=== PATIENT | male | born 1935 | race Caucasian/White ===

== ENCOUNTER 2020-08-14 17:32 | Inpatient (IN) | payer OTHER, SELFPAY ==
[~2020-08-14] VITALS: Ht 157.5 cm; Wt 60.1 kg
[~2020-08-14 17:32] MED LIST: METO-442 PO; SIMV20TA2 PO
--- NOTE | 2020-08-14 17:32 | NUR ---
Placed in room 8 . Placed on customer operations associate, blood pressure machine and pulse oximeter. To gown for exam. Side rails up. Report given to DEYANIRA Medrano.
--- NOTE | 2020-08-14 17:35 | NUR ---
ER Dr. Peña at bedside examining patient.
--- NOTE | 2020-08-14 17:35 | NUR ---
Patient presented to ER C/O, CVA symptoms. Patient A&Ox4, ambulatory to ER, afebrile, denies pain, denies N/V/D, left facial droop. Family of patient report facial droop since 1200 today.
--- NOTE | 2020-08-14 17:40 | NUR ---
# 20 gauge angiocath placed to LAC and RAC. Use of asceptic technique. Opsite placed over site. Blood return noted. Blood for lab drawn from site. Flushed with 10 cc of normal saline. No evidence of infiltration noted. Patient tolerated well.
[2020-08-14 17:49] VITALS: BP_SYST 143
--- NOTE | 2020-08-14 17:50 | NUR ---
Pt to CT via [facility] for CT with contrast. Per Dr. Peña, ok to proceed prior to receiving lab results. Radiology aware.
[2020-08-14 17:54] LABS: BASOPHILS # (AUTO) 0.2 K/uL (0.0-0.2); BASOPHILS % (AUTO) 2.6 % (0.0-2.0); EOSINOPHILS # (AUTO) 0.2 K/uL (0.0-0.4); EOSINOPHILS % (AUTO) 2.7 % (0.0-4.0); HEMATOCRIT 38.1 % (36-54); LYMPHOCYTES # (AUTO) 1.4 K/uL (1.0-5.5); LYMPHOCYTES % (AUTO) 16.3 % (20.5-51.5); MEAN CORPUSCULAR HEMOGLOBIN 31 pg (27-31); MEAN CORPUSCULAR HGB CONC 34 % (32-36); MEAN CORPUSCULAR VOLUME 91 fL (79.0-98.0); MONOCYTES # (AUTO) 0.6 K/uL (0.0-1.0); MONOCYTES % (AUTO) 6.5 % (1.7-9.3); NEUTROPHILS # (AUTO) 6.3 K/uL (1.8-7.7); NEUTROPHILS % (AUTO) 71.9 % (40.0-70.0); PLATELET COUNT (AUTO) 263 K/uL (130-430); RED CELL DISTRIBUTION WIDTH 13.7 % (9.0-15.0); WHITE BLOOD COUNT (AUTO) 8.7 K/uL (4.8-10.8)
[2020-08-14] MEDS ORDERED: IOHEXOL 350 mgI/mL, 150 ML INFUS..BTL IV ONE (18:14)
[2020-08-14 18:16] LABS: ANION GAP 7 (5-15); CALCIUM 8.6 mg/dL (8.4-11.0); CHLORIDE 102 mmol/L (98-107); GLUCOSE 102 mg/dL (70-99); POTASSIUM 4.1 mmol/L (3.5-5.1); SODIUM SERUM 133 mmol/L (136-145); UREA NITROGEN, BLOOD 13 mg/dL (8-21)
--- NOTE | 2020-08-14 18:16 | NUR ---
PT to ER Bed 8 from Radiology.
[2020-08-14 18:25] LABS: PROTHROMBIN TIME 10.5 SECS (9.5-12.5)
[2020-08-14] MEDS ORDERED: ASPIRIN 325 MG TABLET PO ONE (18:30)
[2020-08-14 19:07] LABS: BILIRUBIN,URINE NEGATIVE (NEGATIVE); BLOOD, URINE NEGATIVE (NEGATIVE); CLARITY/URINE CLEAR (CLEAR); GLUCOSE,URINE NEGATIVE (NEGATIVE); KETONES,URINE NEGATIVE (NEGATIVE); LEUKOCYTE ESTERASE ,URINE NEGATIVE (NEGATIVE); NITRITE, URINE NEGATIVE (NEGATIVE); PH,URINE 7.5 (5.0-8.0); PROTEIN URINE NEGATIVE (NEGATIVE); UROBILINOGEN,URINE 0.2 (0.2-1.0)
[2020-08-14 19:11] LABS: COLOR,URINE STRAW (YELLOW)
--- NOTE | 2020-08-14 19:15 | NUR ---
Report given to Shelly MCMILLAN
--- NOTE | 2020-08-14 19:25 | NUR ---
Report received from Marcela MCMILLAN for continuation of care.
--- NOTE | 2020-08-14 19:30 | NUR ---
Patient will be admitted to care of Dr Salazar. Admitted to tele unit. Will go to room 111. Belongings list completed. Complete and up to date summary report printed. SBAR report to be given at bedside with opportunity for questions.
--- NOTE | 2020-08-14 20:37 | NUR ---
ADMISSION: The patient, CEE JOSEPH, 85 y/o, M admitted by CAPO MAYFIELD MD, with the diagnosis of CVA symptoms to room 111 B.Primary RN is aware .
--- NOTE | 2020-08-14 20:45 | NUR ---
INITIAL NOTES Patient ambulates with steady gait, no respiratory distress noted. IV site patent, dressings c/d/i. Call light within reach, bed alarm refused after patient verbalizes proper usage of call light, bed at lowest position. Will continue to monitor.
[2020-08-14 20:51] VITALS: BP_SYST 140
[2020-08-14 22:00] VITALS: BP_SYST 140
[2020-08-14] MEDS ORDERED: NALOXONE HCL 0.4 MG/ML AMP (NARCAN) IVP PRN (22:30)
[2020-08-14] MEDS ORDERED: ACETAMINOPHEN 325 MG TABLET PO PRN (22:30)
[2020-08-14] MEDS: ASPIRIN 325 MG TABLET (ECOTRIN) PO SCH (22:30)
[2020-08-14] MEDS ORDERED: HYDROcodone/ACETAMIN 5-325 MG TAB (NORCO/ VICODIN) PO PRN (22:30)
[2020-08-14] MEDS ORDERED: ALBUTEROL SULFATE 0.083% 2.5 MG/3 ML VIAL.NEB INH PRN (22:30)
[2020-08-14] MEDS: NACL 0.9% 1,000 ML IV SCH (23:12)
--- NOTE | 2020-08-14 23:14 | NUR ---
CONSULTATION PAGED/CALLED Reason for Consultation: CVA Person Who was Notified: DR. CABEZAS Consulting Physician: DR. CABEZAS Migration Specialist Specialty: Ordering Physician: LEONEL
--- NOTE | 2020-08-15 01:15 | NUR ---
Patient resting, eyes closed, no signs of acute respiratory distress noted. Will continue to monitor.
--- NOTE | 2020-08-15 04:05 | NUR ---
Patient resting, answering to the MRI questionnaires. No distress at this time. Will continue to monitor.
--- NOTE | 2020-08-15 05:55 | NUR ---
SPEECH CONSULTATION PAGED/CALLED Reason for Consultation:SWALLOW EVAL Person Who was Notified: JABIER [employer]IL Consulting Physician: [employer] Set Up Technician Specialty: Ordering Physician: LEONEL
--- NOTE | 2020-08-15 06:37 | NUR ---
CLOSING NOTES Patient is resting, no signs of distress at this time. IV site patent, dressings c/d/i, IVF running. Call light within reach, bed alarm off per patient request after patient demonstrates proper call light usage, bed at lowest position. All needs met throughout shift, patient to have MRI brain w/o contrast and 2D echo today. Will endorse care to oncoming shift.
[2020-08-15 07:49] LABS: BASOPHILS % (AUTO) 0.6 % (0.0-2.0); EOSINOPHILS # (AUTO) 0.3 K/uL (0.0-0.4); EOSINOPHILS % (AUTO) 5.2 % (0.0-4.0); HEMATOCRIT 37.8 % (36-54); HEMOGLOBIN 12.9 g/dL (14.0-18.0); LYMPHOCYTES # (AUTO) 1.2 K/uL (1.0-5.5); LYMPHOCYTES % (AUTO) 18.5 % (20.5-51.5); MEAN CORPUSCULAR HEMOGLOBIN 31 pg (27-31); MEAN CORPUSCULAR HGB CONC 34 % (32-36); MEAN CORPUSCULAR VOLUME 91 fL (79.0-98.0); MONOCYTES # (AUTO) 0.6 K/uL (0.0-1.0); MONOCYTES % (AUTO) 9.1 % (1.7-9.3); NEUTROPHILS # (AUTO) 4.5 K/uL (1.8-7.7); NEUTROPHILS % (AUTO) 66.6 % (40.0-70.0); PLATELET COUNT (AUTO) 260 K/uL (130-430); RED BLOOD CELL COUNT(AUTO) 4.16 MIL/uL (4.2-6.2); RED CELL DISTRIBUTION WIDTH 13.4 % (9.0-15.0); WHITE BLOOD COUNT (AUTO) 6.7 K/uL (4.8-10.8)
[2020-08-15 08:00] VITALS: BP_SYST 155
--- NOTE | 2020-08-15 08:00 | NUR ---
Note Pt resting in bed with tele unit attached and intact at this time. No SOB/resp distress or chest pain/discomfort was noted at this time. IV in right AC intact and patent infusing IVF's well. Pt is NPO at this time. No needs noted at this time. Call light within reach.
[2020-08-15 08:12] LABS: ALANINE AMINOTRANSFERASE 21 U/L (12-78); ALBUMIN 2.7 g/dL (3.4-4.8); ANION GAP 7 (5-15); ASPARTATE AMINOTRANSFERASE 18 U/L (10-37); CALCIUM 8.3 mg/dL (8.4-11.0); CHLORIDE 98 mmol/L (98-107); CHOLESTEROL 185 mg/dL (<200); CREATININE 0.59 mg/dL (0.55-1.30); GLUCOSE 98 mg/dL (70-99); HDL CHOLESTEROL 47 mg/dL (>45); LDL CHOLESTEROL 121 mg/dL (<100); POTASSIUM 3.4 mmol/L (3.5-5.1); SODIUM SERUM 130 mmol/L (136-145); TOTAL BILIRUBIN 0.4 mg/dL (0.0-1.0); TRIGLYCERIDES 110 mg/dL (30-150); UREA NITROGEN, BLOOD 8 mg/dL (8-21)
[2020-08-15] MEDS: ASPIRIN 325 MG TABLET (ECOTRIN) PO SCH (08:22)
--- NOTE | 2020-08-15 09:43 | NUR ---
Nutrition Update Villa Scale 16 noted. Pt admitted for CVA symptoms. Diet: NPO BMI: 24.2 kg/m2 RD to follow per nutrition care standards.
--- NOTE | 2020-08-15 12:00 | NUR ---
Note Pt went down for MRI of head w/o contrast via wheelchair at 10am. IVF's were saline locked. Pt came back to room 1030am, IVF's were reconnected and tele unit was reapplied. No needs noted at this time. Dr Salazar was on the floor and results of MRI of head was given to MD to review (11am). No needs noted at this time. Call light within reach. Pt checked on q1' and PRN all shift for needs and care. Pt uses urinal to void.
[2020-08-15 12:17] VITALS: BP_SYST 151
[2020-08-15] MEDS: NACL 0.9% 1,000 ML IV SCH (13:30)
--- NOTE | 2020-08-15 15:52 | NUR ---
S.T. SWALLOW EVAL, SPEECH LANGUAGE EVAL, AND SPEECH TX. SWALLOW EVAL AND SPEECH LANGUAGE EVAL COMPLETED. SWALLOW: PT PRESENTS W/ GENERALLY FUNCTIONAL OROPHARYNGEAL SWALLOW W/ TIMELY BOLUS MANIPULATION AND TIMELY SWALLOW. NO S/S OF ASPIRATION. 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 REC: 1) MECH SOFT CHOPPED DIET. THIN LIQUIDS OK. WRITTEN GUIDELINES GIVEN TO PT. 2) SPEECH TX FOR DYSARTHRIA ORDERED. NURSE STONEY NOTIFIED. SPEECH TX: S: PT SEEN FOR SPEECH TX (15 MIN) O: IMPROVE SPEECH INTELLIGIBILITY A: PT INSTRUCTED ON OM FACILITATION TASKS. PT INSTRUCTED ON SPEECH COMPENSATORY STRATEGIES. PT DEMONSTRATED UNDERSTANDING. WRITTEN INSTRUCTIONS GIVEN. P: CONT TX PLANNED.
--- NOTE | 2020-08-15 15:55 | NUR ---
Note Anayeli (Speech therapist) on the floor and assessment for swallow eval was completed at this time. Pt to be able to tolerate Mechanical soft/chopped diet for dinner. IVF's infusing well. No needs noted a this time. Call light within reach.
[2020-08-15 16:00] VITALS: BP_SYST 154
--- NOTE | 2020-08-15 18:10 | NUR ---
NOTE Pt sitting up in bed eating his Mechanical soft/chopped dinner. No SOB/resp distress or pain/discomfort noted at this time. Tele unit attached and intact all shift. IV in RAC intact and patent infusing IVF's well. Pt checked on q1' and PRN all shift for needs and care. Pt maintained with safety precautions all shift. No needs noted at this time. Call light within reach.
--- NOTE | 2020-08-15 19:20 | NUR ---
RECEIVED REPORT FROM DAVID LUA RN. PT IS AAOX4, PLEASANT AND CALM. IVF INFUSING VIA PUMP -PERIPHERAL IV. AT PRESENT PT VOICES NO C/O PAIN OR DISCOMFORT. NAD NOTED.
[2020-08-15 20:00] VITALS: BP_SYST 144
[2020-08-15] MEDS ORDERED: SIMVASTATIN 20 MG TABLET PO SCH (21:00)
--- NOTE | 2020-08-15 22:30 | NUR ---
MED PASS DONE PT TOLERATED WELL, CALM AND COOPERATIVE. NAD NOTED. SR ON MONITOR WILL CONT TO MONITOR.
[2020-08-15] MEDS ORDERED: ZOLPIDEM TARTRATE 5 MG TABLET PO ONE (23:00)
--- NOTE | 2020-08-15 23:30 | NUR ---
PT REQUESTED A SLEEPING PILL, DR PENA CALLED, NEW ORDERS GIVEN FOR AMBIEN PO X1 DOSE. MED GIVEN.
[2020-08-16 00:10] VITALS: BP_SYST 140
--- NOTE | 2020-08-16 01:30 | NUR ---
ON ROUNDS PT ASLEEP, AMBIEN EFFECTIVE. NAD NOTED RESP REG NON-LABORED, SR ON MONITOR.
[2020-08-16] MEDS: NACL 0.9% 1,000 ML IV SCH ×2 (03:47→14:16)
--- NOTE | 2020-08-16 04:00 | NUR ---
AM CARE DONE, BED BATH AND COMPLETE LINEN CHANGE DONE. PT SELF REPOSITIONED W/ ASSIST, AND MADE COMFORTABLE. PT TOLERATED WELL, NAD NOTED. WAS VERY THANKFUL, RETURNED TO SLEEP.
--- NOTE | 2020-08-16 07:02 | NUR ---
CLOSING NOTE: ON ROUNDS PT ASLEEP, NAD NOTED. ON MONITOR SR /HR 65. WILL CONTINUE TO MONITOR UNTIL ENDORSED TO AM RN
[2020-08-16 08:00] VITALS: BP_SYST 155
--- NOTE | 2020-08-16 08:00 | NUR ---
Note Pt sitting up in bed eating his breakfast. No SOB/resp distress or severe chest pain/discomfort noted at this time. Tele unit attached and intact. IV in left AC intact and patent infusing IVF's well. No needs noted at this time. Call light within reach.
[2020-08-16] MEDS: ASPIRIN 325 MG TABLET (ECOTRIN) PO SCH (09:09)
[2020-08-16 12:00] VITALS: BP_SYST 150
--- NOTE | 2020-08-16 12:00 | NUR ---
Note Pt was seen by Dr Sandoval and order to discharge home if okay with Dr Garland. Dr Garland was called and verbal discharge order home was given. Pt stable and denies any needs at this time. Pt's daughter Sandra called and update on pt's status given. Dr Sandoval also spoke to pt's daughter Sandra and questions/concerns were answered at this time. Call light within reach.
--- NOTE | 2020-08-16 14:00 | NUR ---
Note Pt sitting up in BS chair and IVF's were saline locked at this time. Pt aware his daughter will pick him up at 1600 to take him home.
[2020-08-16 14:52] VITALS: BP_SYST 138
--- NOTE | 2020-08-16 15:35 | NUR ---
Note Pt's tele unit was dc'd and returned to teletypesetter monitor. IV in left AC was dc'd and site benign. No swelling/bleeding/drainage noted at this time. Pt denies any SOB/resp distress or chest pain/discomfort at this time. Pt was checked on q1' and PRN all shift for needs and care. Pt was maintained with safety precautions all shift. No needs noted. Pt's daughter called and request for pants per pt's request was made. Pt stable and no needs noted at this time. Call light within reach.
--- NOTE | 2020-08-16 16:01 | NUR ---
P.T. NOTES D/C FROM P.T. AFTER TX, ENDORSED TO NURSING, MAY AMBU W/ SPC AD GARCIA W/ NURSE SUPERVISION; REFER TO D/C SUMMARY.
--- NOTE | 2020-08-16 16:05 | NUR ---
Note Pt dressed in street clothes and all belongings packed. Pt checked side table and drawers for belongings. Pt stable. Pt was given discharge instructions/prescription and questions/concerns were answered at this time. Pt off the floor via wheelchair to private car. Explained discharge instructions and prescription to pt's daughter Sandra and pt's . Questions/concerns were answered. No SOB/resp distress or chest pain/discomfort was noted. Pt was checked on q1' and PRN all shift. No needs were noted. Pt was maintained with safety precautions all shift.
[2020-08-16] MEDS ORDERED: ZOLPIDEM TARTRATE 5 MG TABLET PO ONE (21:00)
--- NOTE | 2020-08-27 09:33 | NUR ---
DISCHARGE FOLLOW UP CALL: ECONOMIC CONSULTANT phoned pt @ [phone] and spoke with spouse Jacinta. Per spouse, pt is "a little bit better", especially after the PT that PCP ordered for him. Spouse stated pt met with PCP already and has another appointment in 2 weeks. Pt was able to fill prescription meds and no questions regarding the discharge instructions. Jacinta requested for dietary to call; Darya emailed. No further SS call needed.
--- NOTE | 2020-09-02 13:56 | NUR ---
Nutrition Notes RD was notified by high school social studies teacher regarding need for F/U nutrition education. RD spoke w/ pt's via phone call to provide nutrition education. Pt's stated that pt was working w/ a therapist at time of RD phone call, and she would prefer nutrition handouts mailed to her home address: [address] [place] [address]. [address] will provide heart-healthy MNT handouts from the AND Nutrition Care Manual. RD contact info will be provided as well for any further questions.
== END 2020-08-16 16:05 | disposition home or self-care (01) | DRG 65 ==
LOC: SED 17:32 → STU 19:27
PROVIDERS: ADMIT Internal Medicine Hospice and Palliative Medicine; ATTEND Internal Medicine Hospice and Palliative Medicine
DX: I63.9 Cerebral infarction, unspecified (principal); J84.9 Interstitial pulmonary disease, unspecified; E44.0 Moderate protein-calorie malnutrition; I10 Essential (primary) hypertension; I70.0 Atherosclerosis of aorta; G31.9 Degenerative disease of nervous system, unspecified; Z20.828 Contact with and (suspected) exposure to other viral communicable diseases; D64.9 Anemia, unspecified; Z88.0 Allergy status to penicillin; Z79.899 Other long term (current) drug therapy
CPT/HCPCS: 36415; 70450-TC; 70460-TC; 70498; 70551; 71045; 80048; 80053; 80061; 81003; 82962; 84484; 85025; 85610-TC; 85730-TC; 92507-GN; 92523; 92610-GN; 93005; 93306; 97110-GP; 97116-GP; 97530-GP; 99291; G0378; J7030; Q9967

== ENCOUNTER 2024-01-24 05:05 | Emergency (ER) | payer OTHER ==
[~2024-01-24] VITALS: Ht 162.6 cm; Wt 54.4 kg
[~2024-01-24 05:05] MED LIST changes: +ALBU2.5V7 INH; +DORZ10DR10 EACH EYE; +LEVO-62 PO; -METO-442 PO; +PRED20TA PO; -SIMV20TA2 PO
[2024-01-24 05:16] VITALS: BP_SYST 110; PULSE 70; RESP 16; TEMP 97.7; O2SAT 98
[2024-01-24] MEDS ORDERED: TRAM50TA2 PO (06:54)
[2024-01-24 07:01] VITALS: BP_SYST 110; PULSE 70; RESP 16; TEMP 97.7; O2SAT 98
== END 2024-01-24 07:01 | disposition home or self-care (01) ==
LOC: SED 05:05
DX: S42.211A Unspecified displaced fracture of surgical neck of right humerus, initial encounter for closed fracture (principal); S09.90XA Unspecified injury of head, initial encounter; I10 Essential (primary) hypertension; Z88.0 Allergy status to penicillin; Z79.899 Other long term (current) drug therapy; W06.XXXA Fall from bed, initial encounter; Y93.89 Activity, other specified; Y92.89 Other specified places as the place of occurrence of the external cause; Y99.8 Other external cause status
CPT/HCPCS: 70450-TC; 72125-TC; 73030; 99284

== ENCOUNTER 2024-01-28 13:36 | Inpatient (IN) | payer OTHER ==
[~2024-01-28] VITALS: Ht 170.2 cm; Wt 41.7 kg
[~2024-01-28 13:36] MED LIST changes: +TRAM50TA2 PO
[2024-01-28 13:50] VITALS: BP_SYST 168; PULSE 78; RESP 20; TEMP 97.7; O2SAT 96
[2024-01-28 14:27] LABS: BASOPHILS % (AUTO) 0.3 % (0.0-2.0); EOSINOPHILS # (AUTO) 0.1 K/uL (0.0-0.4); EOSINOPHILS % (AUTO) 1.2 % (0.0-4.0); HEMATOCRIT 28.7 % (36-54); HEMOGLOBIN 9.8 g/dL (14.0-18.0); LYMPHOCYTES % (AUTO) 10.8 % (20.5-51.5); MEAN CORPUSCULAR HEMOGLOBIN 34 pg (27-31); MEAN CORPUSCULAR HGB CONC 34 % (32-36); MEAN CORPUSCULAR VOLUME 98 fL (79.0-98.0); MONOCYTES # (AUTO) 0.9 K/uL (0.0-1.0); MONOCYTES % (AUTO) 8.9 % (1.7-9.3); NEUTROPHILS # (AUTO) 7.5 K/uL (1.8-7.7); NEUTROPHILS % (AUTO) 78.8 % (40.0-70.0); PLATELET COUNT (AUTO) 264 K/uL (130-430); RED BLOOD CELL COUNT(AUTO) 2.92 MIL/uL (4.2-6.2); RED CELL DISTRIBUTION WIDTH 12.7 % (9.0-15.0); WHITE BLOOD COUNT (AUTO) 9.5 K/uL (4.8-10.8)
[2024-01-28 14:39] LABS: ANION GAP 5 (5-15); CALCIUM 9.2 mg/dL (8.4-11.0); CARBON DIOXIDE 30 mmol/L (23-29); CHLORIDE 99 mmol/L (98-107); CREATININE 0.78 mg/dL (0.55-1.30); GLUCOSE 109 mg/dL (74-106); POTASSIUM 4.1 mmol/L (3.5-5.1); SODIUM SERUM 134 mmol/L (136-145); UREA NITROGEN, BLOOD 25 mg/dL (8-21)
[2024-01-28] MEDS: KETOROLAC TROMETHAMINE 30 MG VIAL IVP ONE (15:00)
[2024-01-28 17:49] LABS: PROTHROMBIN TIME 10.5 SECS (9.5-12.5)
[2024-01-28] MEDS ORDERED: IBUP-1970 PO (18:26)
[2024-01-28] MEDS: D5/0.45 NS 1,000 ML IV SCH (18:43)
[2024-01-28] MEDS ORDERED: NALOXONE HCL 0.4 MG/ML AMP (NARCAN) IVP PRN (20:45)
[2024-01-28] MEDS ORDERED: ALBUTEROL SULFATE 0.083% 2.5 MG/3 ML VIAL.NEB INH PRN (20:45)
[2024-01-28] MEDS ORDERED: ONDANSETRON HCL 4 MG/2 ML VIAL IVP PRN (20:45)
[2024-01-28] MEDS ORDERED: MORPHINE 4 MG INJ. 4 MG/ML VIAL IVP PRN (20:45)
[2024-01-28] MEDS ORDERED: LORazepam 2 MG/ML VIAL IVP PRN (20:45)
[2024-01-28] MEDS: DORZOLAMIDE HCL/TIMOLOL MAL. 10 ML EYE DROPS (COSOPT) EACH EYE SCH (21:00)
[2024-01-28 22:08] VITALS: BP_SYST 154; PULSE 82; RESP 18; TEMP 97.4; O2SAT 97
[2024-01-28] MEDS ORDERED: INSULIN REGULAR, HUMAN 100 UNITS/ML, 3 ML VIAL (humuLIN R) SUBCUT PRN (22:45)
[2024-01-29 02:23] VITALS: BP_SYST 154; PULSE 82; RESP 18; O2SAT 97
[2024-01-29 04:43] VITALS: BP_SYST 154; PULSE 82; O2SAT 97
[2024-01-29 07:40] VITALS: BP_SYST 117; BP_SYST 154; PULSE 70; PULSE 85; RESP 18; TEMP 98.5; TEMP 99.5; O2SAT 96; O2SAT 99
[2024-01-29 08:21] LABS: ANION GAP 7 (5-15); CALCIUM 8.6 mg/dL (8.4-11.0); CARBON DIOXIDE 27 mmol/L (23-29); CHLORIDE 102 mmol/L (98-107); CREATININE 0.64 mg/dL (0.55-1.30); GLUCOSE 121 mg/dL (74-106); POTASSIUM 4.1 mmol/L (3.5-5.1); SODIUM SERUM 136 mmol/L (136-145); UREA NITROGEN, BLOOD 22 mg/dL (8-21)
[2024-01-29 08:32] LABS: BASOPHILS % (AUTO) 0.2 % (0.0-2.0); EOSINOPHILS % (AUTO) 0.4 % (0.0-4.0); HEMATOCRIT 26.4 % (36-54); LYMPHOCYTES % (AUTO) 8.9 % (20.5-51.5); MEAN CORPUSCULAR HEMOGLOBIN 34 pg (27-31); MEAN CORPUSCULAR HGB CONC 34 % (32-36); MEAN CORPUSCULAR VOLUME 99 fL (79.0-98.0); MONOCYTES # (AUTO) 0.9 K/uL (0.0-1.0); MONOCYTES % (AUTO) 7.5 % (1.7-9.3); NEUTROPHILS # (AUTO) 9.6 K/uL (1.8-7.7); PLATELET COUNT (AUTO) 268 K/uL (130-430); RED BLOOD CELL COUNT(AUTO) 2.68 MIL/uL (4.2-6.2); RED CELL DISTRIBUTION WIDTH 12.6 % (9.0-15.0); WHITE BLOOD COUNT (AUTO) 11.5 K/uL (4.8-10.8)
[2024-01-29 11:36] VITALS: BP_SYST 161; PULSE 80; RESP 16; TEMP 98; O2SAT 98
[2024-01-29 16:50] VITALS: BP_SYST 147; PULSE 83; RESP 17; TEMP 98.4; O2SAT 97
[2024-01-29 19:00] VITALS: BP_SYST 150; PULSE 82; RESP 18; TEMP 98.1
[2024-01-30] VITALS (9 sets, daily range): BP systolic 134–167; PULSE 79–94; RESP 16–18; TEMP 97–98.4; O2SAT 93–99
[2024-01-30] MEDS: MORPHINE 2 MG/ML INJ. SYRINGE IVP PRN (04:35)
[2024-01-30 04:44] LABS: BASOPHILS % (AUTO) 0.4 % (0.0-2.0); EOSINOPHILS # (AUTO) 0.2 K/uL (0.0-0.4); EOSINOPHILS % (AUTO) 2.2 % (0.0-4.0); HEMATOCRIT 25.2 % (36-54); HEMOGLOBIN 8.9 g/dL (14.0-18.0); LYMPHOCYTES # (AUTO) 1.2 K/uL (1.0-5.5); LYMPHOCYTES % (AUTO) 15.6 % (20.5-51.5); MEAN CORPUSCULAR HEMOGLOBIN 34 pg (27-31); MEAN CORPUSCULAR HGB CONC 35 % (32-36); MEAN CORPUSCULAR VOLUME 97 fL (79.0-98.0); MONOCYTES # (AUTO) 0.8 K/uL (0.0-1.0); MONOCYTES % (AUTO) 11.3 % (1.7-9.3); NEUTROPHILS # (AUTO) 5.2 K/uL (1.8-7.7); NEUTROPHILS % (AUTO) 70.5 % (40.0-70.0); PLATELET COUNT (AUTO) 270 K/uL (130-430); RED CELL DISTRIBUTION WIDTH 12.9 % (9.0-15.0); WHITE BLOOD COUNT (AUTO) 7.4 K/uL (4.8-10.8)
[2024-01-30 05:19] LABS: ALANINE AMINOTRANSFERASE 17 U/L (12-78); ALBUMIN 2.5 g/dL (3.4-4.8); ANION GAP 8 (5-15); ASPARTATE AMINOTRANSFERASE 21 U/L (10-37); CALCIUM 8.5 mg/dL (8.4-11.0); CARBON DIOXIDE 26 mmol/L (23-29); CHLORIDE 101 mmol/L (98-107); CREATININE 0.66 mg/dL (0.55-1.30); GLUCOSE 91 mg/dL (74-106); POTASSIUM 3.6 mmol/L (3.5-5.1); SODIUM SERUM 135 mmol/L (136-145); TOTAL BILIRUBIN 1.6 mg/dL (0.0-1.0); TOTAL PROTEIN, SERUM 5.8 g/dL (6.4-8.3); UREA NITROGEN, BLOOD 14 mg/dL (8-21)
[2024-01-30] MEDS: hydrALAZINE HCL 20 MG/ML VIAL IVP PRN (09:03)
[2024-01-31] VITALS (9 sets, daily range): BP systolic 118–157; PULSE 71–86; RESP 16–18; TEMP 97.1–98.2; O2SAT 96–100
[2024-01-31] MEDS: cloNIDine HCL 0.1 MG TABLET PO ONE (17:43)
[2024-01-31] MEDS: traMADol HCL HCL 50 MG TABLET (ULTRAM) PO ONE (22:01)
[2024-02-01 00:01] VITALS: BP_SYST 140; PULSE 79; RESP 18; TEMP 97.3; O2SAT 98
== END 2024-02-01 00:35 | DRG 563 ==
LOC: SED 13:36 → SMU 18:16
PROVIDERS: ADMIT Preventive Medicine Preventive Medicine/Occupational Environmental Medicine; ATTEND Specialist
DX: S42.351A Displaced comminuted fracture of shaft of humerus, right arm, initial encounter for closed fracture (principal); E87.1 Hypo-osmolality and hyponatremia; E44.0 Moderate protein-calorie malnutrition; Z68.1 Body mass index [BMI] 19.9 or less, adult; I25.10 Atherosclerotic heart disease of native coronary artery without angina pectoris; I10 Essential (primary) hypertension; E78.00 Pure hypercholesterolemia, unspecified; W18.39XA Other fall on same level, initial encounter; D64.9 Anemia, unspecified; Y93.89 Activity, other specified; Y92.89 Other specified places as the place of occurrence of the external cause; Y99.8 Other external cause status; Z79.899 Other long term (current) drug therapy; Z88.0 Allergy status to penicillin
CPT/HCPCS: 36415; 73030; 73060; 80048; 80053; 82948; 83880; 84484; 85025; 85610; 85730; 93005; 93923; 93971; 97116-GP; 97530-GP; 99285; J0360; J1815; J1885; J2270